=== PATIENT | female | born 1955 | race Caucasian/White ===

== ENCOUNTER 2016-09-05 11:35 | Day surgery (SDC) | payer MEDICARE, OTHER ==
[~2016-09-05] VITALS: Ht 170.2 cm; Wt 93.1 kg
[~2016-09-05 11:35] MED LIST: CETI-240 PO; CLOP75TA27 PO; EZET10TA3 PO; FURO20TA3 PO; ISOS5TAB23 PO; KENC1 TOP; METO-53 PO; PRED20TA PO; TRAZ100T15 PO
[2016-09-05 12:52] VITALS: Ht 170.2 cm; Wt 93.1 kg
[2016-09-05] MEDS ORDERED: SENNA (12:58)
[2016-09-05 13:11] VITALS: BP 143/80; PULSE 65; RESP 21
[2016-09-05] MEDS ORDERED: FENTAnyl 50 MCG/ML VIAL ONE (13:20)
[2016-09-05] MEDS ORDERED: PROPOFOL 20 ML ONE (13:20)
[2016-09-05 14:05] VITALS: BP 139/83; PULSE 60; RESP 18
--- NOTE | 2016-09-05 14:13 | GILP ---
DATE OF PROCEDURE: 09/05/2016 NAME OF PROCEDURE: Esophagogastroduodenoscopy and biopsy. SURGEON: Casey Lawler MD PREOPERATIVE DIAGNOSIS: Chronic heartburn. POSTOPERATIVE DIAGNOSES: 1. Gastroesophageal reflux disease. 2. Bile reflux gastritis. 3. Gastric mucosal biopsies were taken for Helicobacter pylori test. INDICATION FOR THE PROCEDURE: Ms. Lina Murry is a 61-year-old female patient who had chronic heartburn, not responding to therapy. The patient was scheduled for endoscopic examination for furt her evaluation. The procedure and possible complications are well explained to the patient. The patient understood and consented to the procedure. DESCRIPTION OF PROCEDURE: Under the influence of anesthesia, the gastroscope was carefully introduc ed into the esophagus and under direct vision, it was advanced to the stomach and through the pyloru s into the duodenal bulb and descending duodenum. FINDINGS: ESOPHAGUS: The patient had gastroesophageal reflux disease. STOMACH: She had bile reflux gastritis. Gastric mucosal biopsies were taken for H. pylori test. DUODENUM: Normal. She tolerated the procedure very well and there was no complication from the procedure. At the end of the procedure, she was awake with stable vital signs and she was discharged home to the care of h family. IMPRESSION: 1. Gastroesophageal reflux disease. 2. Bile reflux gastritis. 3. Gastric mucosal biopsies were taken for Helicobacter pylori test. PLAN: 1. Carafate 1 g p.o. t.i.d. before meals. 2. Await H. pylori test report. Dictated By: CASEY DELEON/EDBRA Conf#: [id number] DID#: [id number] CC: CASEY LAWLER MD;*EndCC*
== END 2016-09-05 14:07 | disposition home or self-care (01) ==
LOC: GIL 11:35
PROVIDERS: ATTEND Internal Medicine Gastroenterology
DX: K21.9 Gastro-esophageal reflux disease without esophagitis (principal); B96.81 Helicobacter pylori [H. pylori] as the cause of diseases classified elsewhere; K29.60 Other gastritis without bleeding; I10 Essential (primary) hypertension; E78.5 Hyperlipidemia, unspecified
CPT/HCPCS: 43239; 87081; J3010

== ENCOUNTER 2017-06-07 12:27 | Day surgery (SDC) | payer MEDICARE, OTHER ==
[~2017-06-07] VITALS: Ht 167.6 cm; Wt 93.4 kg
[~2017-06-07 12:27] MED LIST changes: -CETI-240 PO; -FURO20TA3 PO; -ISOS5TAB23 PO; -KENC1 TOP; -PRED20TA PO; +SENNA; -TRAZ100T15 PO
[2017-06-07 12:46] VITALS: Ht 167.6 cm; Wt 93.4 kg
[2017-06-07 13:03] VITALS: BP 156/75; PULSE 62; RESP 18
[2017-06-07] MEDS ORDERED: PROPOFOL 20 ML ONE (13:43)
[2017-06-07] MEDS ORDERED: LIDOCAINE 2% (SDV) 5 ML INJ ONE (13:43)
--- NOTE | 2017-06-07 14:21 | OPPN ---
Date/Time of Note Date/Time of Note DATE: 06/07/17 TIME: 14:20 Operative Report Preoperative Diagnosis Change in bowel habit Lower abdominal pain Postoperative Diagnosis Internal hemorrhoids No colitis or neoplasm is identified Operation/Procedure Performed Colonoscopy Surgeon see signature line pediatric dental assistant None Anesthesia: MAC Estimated blood loss: none Transfusion Required none Specimen None Grafts/Implants none Complications none CASEY LAWLER MD Jun 07, 2017 14:21
--- NOTE | 2017-06-08 01:00 | GILP ---
DATE OF PROCEDURE: NAME OF PROCEDURE: Colonoscopy. SURGEON: Casey Baeza MD PREOPERATIVE DIAGNOSES: 1. Change in bowel habit. 2. Right lower quadrant abdominal pain. POSTOPERATIVE DIAGNOSES: 1. Colonoscopy all the way to the cecum and into the terminal ileum. 2. Normal terminal ileum. 3. Normal colonic mucosa. 4. Internal hemorrhoids. 5. No colitis or neoplasm was identified. INDICATION FOR THE PROCEDURE: Ms. Lina Murry is a 62-year-old female patient who had right lo wer quadrant abdominal pain. She also noticed a change in the bowel habit. The patient underwent a bdominal CT scan and she was noted to have some inflammatory changes in the right lower quadrant, so the patient was scheduled for colonoscopy for further evaluation. The procedure and possible complications are well explained to the patient. The patient understood and consented to the procedure. DESCRIPTION OF PROCEDURE: Under the influence of anesthesia, the colonoscope was carefully introduc ed in the rectum and under direct vision, it was advanced all the way to the cecum and through the i leocecal valve into the terminal ileum. FINDINGS: The terminal ileum was normal. The colonic mucosa was normal. There was no colitis or n eoplasm identified. She had internal hemorrhoids. She tolerated the procedure very well and there was no complication from the procedure. At the end of the procedures, she was awake with stable vital signs and she was discharged home to the care of her family. IMPRESSION: Please see postoperative diagnoses. PLAN: 1. Bentyl 10 mg p.o. t.i.d. p.r.n. for pain. 2. Next screening colonoscopy in 10 years. Dictated By: CASEY DELEON/DEBRA Conf#: [id number] DID#: [id number]
--- NOTE | 2017-06-08 12:37 | CONS ---
DATE OF ADMISSION: 06/07/2017 DATE OF CONSULTATION: PATIENT NAME: LINA MEJÍA HISTORY OF PRESENT ILLNESS: Lina Mejía is a 62-year-old female patient who has been referred to me for further evaluation of right lower quadrant abdominal pain associated with change in bowel habits. The patient went to the emergency room and she had abdominal CT scan done and she was noted to have some inflammation in the right lower quadrant. Patient is known to have had gastritis and she had positive H. pylori infection. There is no past history of colon neoplasm. Her appetite has been good, and no weight loss. She is status post cholecystectomy, no history of liver disease. S he has history of constipation, and she has been taking Senna. She is hypertensive, not a diabetic, no heart disease, lung problem or kidney disease. She has hyperlipidemia. She has history of cortez sient ischemic attack and she is on Plavix. The patient is a nonsmoker, no alcohol abuse. There is no family history of gastrointestinal tract neoplasm. There are no significant drug allergies. MEDICATIONS 1. Metoprolol. 2. Zetia. 3. Plavix. 4. Senna. The patient does not remember the dosages. PHYSICAL EXAMINATION: VITAL SIGNS: The patient is 5 feet 6 inches tall and weighs 200 pounds. BMI 32, blood pressure is 1 36/84. HEART: Normal heart sounds. LUNGS: Clear. ABDOMEN: Soft, no masses, no focal tenderness. Normal bowel sounds. NEUROLOGIC: Normal neurological exam. IMPRESSION: 1. Change in bowel habits and right lower quadrant abdominal pain. 2. The patient had abdominal CT scan and she was noted to have some inflammation in the right lower quadrant. 3. The patient is taking Senna for constipation. 4. Helicobacter pylori gastritis. 5. Hypertension. 6. Hyperlipidemia. 7. History of transient ischemic attack. The patient is on Plavix. 8. Status post cholecystectomy. 9. Elevated body mass index. PLAN: 1. Zantac 300 mg p.o. b.i.d. for 14 days. 2. Doxycycline 100 mg p.o. b.i.d. for 14 days. 3. Flagyl 500 mg p.o. b.i.d. for 14 days. 4. Pepto-Bismol 2 tablets p.o. q.i.d. for 14 days. 5. Carafate 1 gram p.o. t.i.d. before meals after completing antibiotic therapy for bile reflux gas tritis. 6. Colonoscopy for further evaluation. 7. Because of the obesity with a short thick neck, she needs monitored anesthesia care. The procedure and possible complications are well explained to the patient. She understands and con sents to the procedure. I thank you once again. With warmest personal regards, Dictated By: CASEY LAWLER MD GD/DEBRA Conf#: [id number] DID#: [id number] CC: CASEY LAWLER MD;*EndCC*
== END 2017-06-07 14:34 | disposition home or self-care (01) ==
LOC: GIL 12:27
PROVIDERS: ATTEND Internal Medicine Gastroenterology
DX: R19.4 Change in bowel habit (principal); K64.8 Other hemorrhoids; I10 Essential (primary) hypertension; E78.5 Hyperlipidemia, unspecified; Z86.73 Personal history of transient ischemic attack (TIA), and cerebral infarction without residual deficits; Z79.01 Long term (current) use of anticoagulants

== ENCOUNTER 2018-10-17 08:57 | Day surgery (SDC) | payer MEDICARE, OTHER ==
[~2018-10-17] VITALS: Ht 165.1 cm; Wt 92.4 kg
[~2018-10-17 08:57] MED LIST changes: -EZET10TA3 PO; +EZET10TA31 PO; +LIDOCAINE 2% (SDV) 5 ML INJ ONE; +PROPOFOL 200 MG INJ ONE
[2018-10-17] MEDS ORDERED: CRESTOR (10:40)
[2018-10-17] MEDS ORDERED: OMEPRAZOLE (10:40)
[2018-10-17] MEDS ORDERED: PLAVIX (10:40)
[2018-10-17] MEDS ORDERED: AMLODIPINE (10:40)
[2018-10-17 10:43] VITALS: BP 136/70; PULSE 65; RESP 18; Ht 165.1 cm; Wt 92.4 kg
--- NOTE | 2018-10-17 10:58 | PREAC ---
Date/Time of Note Date/Time of Note DATE: 10/17/18 TIME: 10:57 Anesthesia Eval and Record Evaluation Time Pre-Procedure Interview DATE: 10/17/18 TIME: 10:57 Age 63 Sex female NPO: 8 hrs Preoperative diagnosis abd pain Planned procedure EGD Past Medical History Past Medical History: Includes Cardio: HTN, Dyslipidemia Neuro: CVA, Peripheral neuropathy Hepatic: Hepatitis GI: GERD Heme: Other (plavix) Surgery & Anesthesia Issues No known issue Meds Anticoagulation: No Beta Carmen within 24 hr: No Reason Beta Carmen not given: Pt. not on B-Carmen Reported Medications [Crestor] No Conflict Check 10/17/18 [Plavix] No Conflict Check 10/17/18 [Omeprazole] No Conflict Check 10/17/18 [Amlodipine] No Conflict Check 10/17/18 Metoprolol (Lopressor) 50 Mg Tablet, 75 MG PO BID 12/27/12 Discontinued Reported Medications [Senna] No Conflict Check 09/05/16 Clopidogrel Bisulfate (Clopidogrel) 75 Mg Tablet, 75 MG PO DAILY, TAB 08/27/14 Ezetimibe* (Zetia*) 10 Mg Tablet, 10 MG PO DAILY, TAB 08/27/14 Meds reviewed: Yes Allergies Coded Allergies: No Known Allergy (Unverified , 10/17/18) Allergies Reviewed: Yes Labs/Studies Labs Reviewed: Reviewed by anesthesiologist test: Negative Studies: ECG, CXR Pre-procedure Exam Airway: Adequate mouth opening, Adequate thyromental dist Mallampati: Mallampati III Teeth: Normal Lung: Normal Heart: Normal ASA Physical Status ASA physical status: 3 Emergency: None Planned Anesthetic General/MAC: MAC Planned Pain Management Parenteral pain med Pre-operative Attestations Prior to commencing anesthesia and surgery, the patient was re-evaluated, there was verification of: *The patient's identity *The results of appropriate recent lab work and preoperative vital signs *The above evaluation not changing prior to induction *Anesthetic plan, risk benefits, alternative and complications discussed with patient/family; questions answered; patient/family understands, accepts and wishes to proceed. TERRY VIDES MD Oct 17, 2018 10:58
[2018-10-17] MEDS ORDERED: PROPOFOL 60 ML ONE (11:01)
[2018-10-17 11:44] VITALS: BP 135/81; PULSE 64; RESP 16
--- NOTE | 2018-10-17 16:13 | PAC ---
Date/Time of Note Date/Time of Note DATE: 10/17/18 TIME: 16:13 Post-Anesthesia Notes Post-Anesthesia Note Last documented vital signs Vital Signs Date Temp Pulse Resp B/P (MAP) Pulse Ox O2 O2 Flow FiO2 Time Delivery Rate 10/17/18 64 16 135/81 97 Room Air 11:44 (99) 10/17/18 98.2 10:43 Activity: WNL Respiratory function: WNL Cardiovascular function: WNL Mental status: Baseline Pain reasonably controlled: Yes Hydration appropriate: Yes Nausea/Vomiting absent: Yes TERRY VIDES MD Oct 17, 2018 16:13
--- NOTE | 2018-10-18 08:03 | CONS ---
DATE OF ADMISSION: 10/17/2018 DATE OF CONSULTATION: PATIENT NAME: LINA MEJÍA TYPE OF CONSULTATION: Preoperative gastroenterology. Thank you very much for this kind referral. HISTORY OF PRESENT ILLNESS: Ms. Lina Mejía is a 63-year-old female patient who has been referr ed to me for further evaluation of upper abdominal pain and chronic heartburn, not responding to ther apy with omeprazole. No past history of peptic ulcer disease. Not on nonsteroidal anti-inflammatory agents. Appetite is good. No weight loss. The patient had abdominal CT scan done and she was note d to have fatty liver. She is status post cholecystectomy. She does not have any fever, chills or j aundice. Denies any change in the bowel habit or rectal bleeding. The patient had colonoscopy 1-1/2 years ago and no colon neoplasm was identified. PAST MEDICAL HISTORY: She is hypertensive. Not a diabetic. No heart disease, lung problem or kidne y disease. Has hyperlipidemia. The patient has history of transient ischemic attack and she is on P lavix. SOCIAL HISTORY: Nonsmoker. No alcohol abuse. FAMILY HISTORY: No family history of gastrointestinal tract neoplasm. ALLERGIES: NO DRUG ALLERGIES. MEDICATIONS: 1. Amlodipine 10 mg. 2. Metoprolol 50 mg. 3. Omeprazole 40 mg. 4. Crestor 20 mg. 5. Plavix 50 mg. PHYSICAL EXAMINATION: VITAL SIGNS: She is 5 feet 5 inches tall and weighs 200 pounds, BMI 33, blood pressure 138/90. HEART: Normal heart sounds. LUNGS: Clear. ABDOMEN: Soft. No masses. Normal bowel sounds. NEUROLOGIC: Normal. NEUROLOGIC: Normal. IMPRESSION: 1. Upper abdominal pain and chronic heartburn, not responding to therapy with omeprazole. 2. The patient had abdominal CT scan done and she was noted to have fatty liver. 3. Status post cholecystectomy. 4. The patient had a screening colonoscopy 1-1/2 years ago and no colon neoplasm was identified. 5. Hypertension. 6. Hyperlipidemia. 7. History of transient ischemic attack and the patient is on Plavix. 8. Obesity. PLAN: 1. Follow up with the primary MD for the management of hypertension and obesity. 2. The patient was strongly advised to lose weight and have a good control of serum lipids because o f the fatty liver. 3. Endoscopic examination for further evaluation. The procedure and possible complications are well explained to the patient. She understands and cons ents to the procedure. I thank you once again. With warmest personal regards, Dictated By: CASEY DELEON/DEBRA Conf#: [id number] DID#: [id number]
== END 2018-10-17 12:03 | disposition home or self-care (01) ==
LOC: GIL 08:57
PROVIDERS: ATTEND Internal Medicine Gastroenterology
DX: K21.9 Gastro-esophageal reflux disease without esophagitis (principal); I10 Essential (primary) hypertension; G45.9 Transient cerebral ischemic attack, unspecified
CPT/HCPCS: 88305; 88312